=== PATIENT | female | born 1980 ===

== ENCOUNTER 2023-10-04 21:23 | Outpatient (REF) | payer SELFPAY ==
[2023-10-04 21:42] LABS: HCT 31.2 % (36.0-46.0); HGB 9.4 g/dL (11.2-15.7); MCH 24.2 pg (27.0-33.0); MCHC 30.1 % (32.0-36.0); MCV 80 fL (80-95); MPV 9.9 fL (8.0-11.0); Platelet Count 271 10^3/uL (130-400); RBC 3.89 10^6/uL (3.93-5.22); RDW 18.9 % (11.7-14.6); RDW-SD 53.6 fL; WBC 5.61 10^3/uL (4.4-10.8)
[2023-10-04 21:58] LABS: Anion Gap 10.1 mmol/L (3-11); BUN 16 mg/dL (7-18); CO2 27.9 mmol/L (21.0-32.0); CREATININE 1.1 mg/dL (0.55-1.02); Calcium 8.6 mg/dL (8.5-10.1); Chloride 104 mmol/L (98-107); Estimated GFR 63.54 (mL/min/1.73m2); Glucose 91 mg/dL (74-106); Potassium 4.6 mmol/L (3.5-5.1); Sodium 142 mmol/L (136-145)
== END 2023-10-04 21:24 | disposition home or self-care (01) ==
LOC: LBN 21:23
PROVIDERS: Visit Provider Family Medicine
DX: N17.9 Acute kidney failure, unspecified (principal); I89.0 Lymphedema, not elsewhere classified; D64.9 Anemia, unspecified
CPT/HCPCS: 80048; 85027

== ENCOUNTER 2024-07-27 16:58 | Outpatient (REF) | payer SELFPAY ==
[2024-07-27 15:43] LABS: Abs Immature Grans 0.02 10^3/uL (0.0-0.06); Absolute Basophil Count 0.01 10^3/uL (0.0-0.2); Absolute Eosinophil Count 0.08 10^3/uL (0.0-0.7); Absolute Lymphocyte Count 0.72 10^3/uL (1.2-3.4); Absolute Monocyte Count 0.31 10^3/uL (0.1-0.8); Absolute Neutrophil Count 2.78 10^3/uL (1.2-6.7); Basophils % 0.3 %; Immature Grans % 0.5 %; Lymphocytes % 18.4 %; MCH 22.2 pg (27.0-33.0); MCHC 29.4 % (32.0-36.0); MCV 75 fL (80-95); MPV 10.2 fL (8.0-11.0); Monocytes % 7.9 %; Neutrophils % 70.9 %; Platelet Count 226 10^3/uL (130-400); RBC 4.51 10^6/uL (3.93-5.22); RDW 17.2 % (11.7-14.6); RDW-SD 46.5 fL; WBC 3.92 10^3/uL (4.4-10.8)
[2024-07-27 16:16] LABS: ALT 28 U/L (14-59); AST 21 U/L (15-37); Albumin 3.5 g/dL (3.4-5.0); Alkaline Phosphatase 95 U/L (46-116); Anion Gap 2.7 mmol/L (3-11); BUN 8 mg/dL (7-18); Bilirubin, Total 0.32 mg/dL (0.2-1.0); C-Reactive Protein 0.73 mg/dL (<or=0.5); CO2 33.3 mmol/L (21.0-32.0); CREATININE 0.7 mg/dL (0.55-1.02); Calcium 8.8 mg/dL (8.5-10.1); Chloride 105 mmol/L (98-107); Ferritin 10 ng/mL (8-252); Glucose 109 mg/dL (74-106); Magnesium 2.1 mg/dL (1.8-2.4); Potassium 4.4 mmol/L (3.5-5.1); Sodium 141 mmol/L (136-145); Total Protein 7.6 g/dL (6.4-8.2)
[2024-07-27 17:07] LABS: Vitamin B12 805 pg/mL (193-986); Vitamin D 25 Total 14.2 ng/mL (30-100)
== END 2024-07-27 16:59 | disposition home or self-care (01) ==
LOC: LBN 16:58
PROVIDERS: Visit Provider Family Medicine
DX: I89.0 Lymphedema, not elsewhere classified (principal); E66.01 Morbid (severe) obesity due to excess calories; Z68.45 Body mass index [BMI] 70 or greater, adult; E53.8 Deficiency of other specified B group vitamins; E03.8 Other specified hypothyroidism; D50.9 Iron deficiency anemia, unspecified
CPT/HCPCS: 80053; 82306; 82607; 82728; 83735; 85025; 86140